=== PATIENT | female | born 1990 | race Caucasian/White ===

== ENCOUNTER 2016-10-25 13:53 | Emergency (ER) | payer SELFPAY ==
[~2016-10-25] VITALS: Ht 165.1 cm; Wt 69.0 kg
[2016-10-25] MEDS ORDERED: PHEN37.599 PO (14:03)
[2016-10-25 16:09] VITALS: BP 110/69
[2016-10-25] MEDS ORDERED: LORazepam 2 MG TABLET PO ONE (16:15)
== END 2016-10-25 16:13 | disposition home or self-care (01) ==
LOC: EMS 13:56
DX: F41.9 Anxiety disorder, unspecified (principal); T50.5X5A Adverse effect of appetite depressants, initial encounter; F17.210 Nicotine dependence, cigarettes, uncomplicated; F12.90 Cannabis use, unspecified, uncomplicated; Y92.89 Other specified places as the place of occurrence of the external cause
CPT/HCPCS: 93005; 99285; 99406